=== PATIENT | male | born 1955 | race Caucasian/White ===

== ENCOUNTER 2025-01-22 07:15 | Day surgery (SDC) | payer MEDICARE ==
[~2025-01-22] VITALS: Ht 172.7 cm; Wt 109.6 kg
[~2025-01-22 07:15] MED LIST: MIDAZOLAM INJ 2 MG/2 ML VIAL As Ordered ONE; PHENYLEPHRINE 10% OPHTH SOL 5ML OS PRN; [UNRECOGNIZED DRUG - CODE] PO
[2025-01-22] MEDS: OFLOXACIN 0.3 % (OCUFLOX) OPTH SOL 5ML OS ONE (08:11)
[2025-01-22] MEDS: LIDOCAINE 3.5% 1 ML OPHTH TOPICAL GEL OU ONE (08:11)
[2025-01-22] MEDS: TROPICAMIDE 1% OPHTH SOLN 15ML OS SCH (08:12)
[2025-01-22] MEDS: CYCLOPENTOLATE 1% OPHTH SOLN 2 ML BTL OS SCH (08:13)
[2025-01-22] MEDS: PHENYLEPHRINE 2.5% OPHTH SOL 2ML OS SCH (08:13)
[2025-01-22] MEDS: CEFUROXIME 1 MG/0.1 ML INTRACAMERAL INJ As Ordered ONE (09:28)
[2025-01-22] MEDS: TRYPAN BLUE 0.06 % 2.25 ML OPHTH SYR (VISIONBLUE) As Ordered ONE (09:28)
[2025-01-22] MEDS: BSS IRRIG/VANCO(10MG)/TOBRA(5MG)/EPINEPH(1:1000-0.5CC)500ML BAG-ORONLY As Ordered ONE (09:28)
[2025-01-22] MEDS: LIDOCAINE 1% SDV 5 ML VIAL As Ordered ONE (09:28)
[2025-01-22] MEDS: VISCOAT 40-30MG/ML 0.5ML SYRINGE As Ordered ONE (09:31)
[2025-01-22 09:48] VITALS: BP 115/79; TEMP 97.5; O2SAT 97
== END 2025-01-22 10:10 | disposition home or self-care (01) ==
LOC: M SDC 07:15
PROVIDERS: ATTEND Ophthalmology
DX: H25.12 Age-related nuclear cataract, left eye (principal); I71.40 Abdominal aortic aneurysm, without rupture, unspecified; Z88.0 Allergy status to penicillin
CPT/HCPCS: 66984; 93005; A4649; J0697; J2250; J3010; V2632